=== PATIENT | female | born 1955 | race Asian ===

== ENCOUNTER 2018-01-11 05:50 | Day surgery (SDC) | payer MEDICAID ==
[~2018-01-11] VITALS: Ht 160 cm; Wt 54.4 kg
[~2018-01-11 05:50] MED LIST: GABA-529 PO; IBUP200C48 PO; TRAM50TA3 PO
[2018-01-11] MEDS ORDERED: NORMAL SALINE 0.9% 10 ML SYR ONE (09:15)
[2018-01-11] MEDS ORDERED: BUPIVACAINE HCL/PF 0.5% (5MG/ML) 10ML ONE (09:15)
[2018-01-11] MEDS ORDERED: BACITRACIN 50,000 UNITS/VIAL ONE (09:15)
[2018-01-11] MEDS ORDERED: MIDAZOLAM HCL 2 MG/2 ML VIAL ONE (09:21)
[2018-01-11] MEDS ORDERED: FENTANYL CITRATE/PF 50MCG/ML 2ML VIAL ONE (09:25)
[2018-01-11] MEDS ORDERED: GLYCOPYRROLATE 0.2 MG/ML 2ML VIAL ONE (09:25)
[2018-01-11] MEDS ORDERED: PROPOFOL 200MG/20ML VIAL IV ONE (09:25)
[2018-01-11] MEDS ORDERED: CEFAZOLIN SODIUM 1000MG/VIAL ONE (09:26)
[2018-01-11] MEDS ORDERED: LIDOCAINE HCL/PF 1% 10 MG/ML 5ML VIAL ONE (09:26)
[2018-01-11] MEDS ORDERED: ONDANSETRON HCL 4MG/2ML VIAL ONE (09:35)
[2018-01-11] MEDS ORDERED: METOCLOPRAMIDE HCL 10MG/2ML VIAL ONE (09:35)
[2018-01-11] MEDS ORDERED: ATOR10TA69 PO (09:49)
[2018-01-11] MEDS ORDERED: SODIUM CHLORIDE 0.9% 1,000 ML IV ONE (10:11)
[2018-01-11] MEDS ORDERED: HYDROMORPHONE HCL/PF 2MG/ML CPJ IV PRN (10:15)
[2018-01-11] MEDS ORDERED: MEPERIDINE HCL/PF 25MG/ML CPJ IV PRN (10:15)
[2018-01-11] MEDS ORDERED: ONDANSETRON HCL 4MG/2ML VIAL IV PRN (10:15)
[2018-01-11] MEDS ORDERED: HYDROCODONE/ACETAMINOPHEN 10/325MG TABLET PO PRN (11:15)
[2018-01-11 12:15] VITALS: BP 129/85
== END 2018-01-11 13:50 | disposition home or self-care (01) ==
LOC: OR 05:50
PROVIDERS: ATTEND Orthopaedic Surgery
DX: M65.312 Trigger thumb, left thumb (principal); M65.332 Trigger finger, left middle finger; M65.342 Trigger finger, left ring finger; Z90.710 Acquired absence of both cervix and uterus; G43.909 Migraine, unspecified, not intractable, without status migrainosus; Z86.73 Personal history of transient ischemic attack (TIA), and cerebral infarction without residual deficits; Z79.899 Other long term (current) drug therapy; Z98.890 Other specified postprocedural states
CPT/HCPCS: 26055; 36415; 86850; 86900; 86901; A4216; J0690; J1170; J2250; J2405; J2765; J3010; J3490; J7120; J2704